=== PATIENT | female | born 1930 | race Caucasian/White ===

== ENCOUNTER 2019-06-14 13:41 | Emergency (ER) | payer MEDICARE ==
--- NOTE | 2019-06-14 15:11 | EDM.PDOC ---
ED HPI GENERAL MEDICAL PROBLEM - General Chief Complaint: Skin Complaint Stated Complaint: FELL AND HIT L SIDE OF THE FACE Time Seen by Provider: 06/14/19 15:00 Source of Information: Reports: Patient History Limitations: Reports: No Limitations - History of Present Illness INITIAL COMMENTS - FREE TEXT/NARRATIVE: Patient presents for evaluation of superficial injury to the left side of her face after she tripped and fell and scraped the left side of her face against a fence post while out with family. She had been walking carefully to avoid any icy areas and there was none where this event occurred. She chuckles somewhat that she ended up falling on an area of dried pavement. There was minor bleeding from the side of the face initially and after observation at the scene for some time, decided to come here for evaluation and treatment. She does not remember exactly when she had a tetanus immunization but knows she has had them in the past. Onset: Sudden Duration: Hour(s): Left Face/Facial Pain Score (Numeric/FACES): 5 - Related Data Allergies Allergy/AdvReac Type Severity Reaction Status Date / Time bee venom protein (honey bee) Allergy Difficulty Verified 06/14/19 14:12 Standing ciprofloxacin [From Cipro] Allergy Cannot Verified 06/14/19 14:12 Remember Penicillins Allergy Rash Verified 06/14/19 14:12 Sulfa (Sulfonamide Allergy Nausea Verified 06/14/19 14:12 Antibiotics) Home Meds: Home Meds Triamterene/Hydrochlorothiazid [Triamterene-HCTZ 75-50 MG] 0.5 tab PO DAILY [History] Warfarin [Coumadin] 2.75 mg PO ASDIRECTED 06/14/19 [History] Warfarin [Coumadin] 5 mg PO ASDIRECTED 06/14/19 [History] amLODIPine [Norvasc] 5 mg PO DAILY 06/14/19 [History] Past Medical History HEENT History: Reports: Impaired Vision Cardiovascular History: Reports: Hypertension [employer]IST History: Reports: Psychiatric History: Reports: Depression - Infectious Disease History Infectious Disease History: Reports: Chicken Pox, Measles, Mumps - Past Surgical History HEENT Surgical History: Reports: Cataract Surgery Respiratory Surgical History: Reports: Other (See Below) Other Respiratory Surgeries/Procedures: PE aprox 3 years ago. GI Surgical History: Reports: Colonoscopy Female Surgical History: Reports: Hysterectomy, Salpingo-Oophorectomy Social & Family History - Tobacco Use Smoking Status *Q: Never Smoker Second Hand Smoke Exposure: No - Caffeine Use Caffeine Use: Reports: Coffee, Tea - Recreational Drug Use Recreational Drug Use: No ED ROS GENERAL - Review of Systems Review Of Systems: Comprehensive ROS is negative, except as noted in HPI. ED EXAM, SKIN/RASH Exam: See Below Text/Narrative:: Composed female sitting on the bed in room 6. Exam Limited By: No Limitations General Appearance: Alert, No Apparent Distress Head: Other (There is an irregular 1.5 x 2 cm area of superficial abrasion/ avulsion in the lower left mandibular region) Course - Vital Signs Last Recorded V/S: Last Vital Signs Temp 35.9 C L 06/14/19 14:23 Pulse 86 06/14/19 14:23 Resp 16 06/14/19 14:23 BP 199/104 H 06/14/19 14:23 Pulse Ox 96 06/14/19 14:23 - Orders/Labs/Meds Orders: Active Orders 24 hr Category Date Time Status Vaccines to be Administered [RC] PER UNIT ROUTINE Care 06/14/19 15:12 Ordered Meds: Medications Discontinued Medications Generic Name Dose Route Start Last Admin Trade Name Freq PRN Reason Stop Dose Admin Diphtheria/Tetanus/Acell Pertussis 0.5 ml 06/14/19 15:12 06/14/19 15:34 Adacel IM 06/14/19 15:13 0.5 ml .ONCE ONE Administration - Re-Assessments/Exams Free Text/Narrative Re-Assessment/Exam: 06/14/19 15:13 She has a superficial skin abrasion/avulsion. The area will be cleansed with saline and then a transparent dressing will be applied. She should leave that on until she returns home to [place]. She should schedule a recheck with her doctor for some time this next week to remove this current dressing and reevaluate the injury. Because she is on warfarin this will help to control the oozing the past. She will be given a TDaP Booster as she does not recall when she last had any kind of tetanus immunization. Departure - Departure Time of Disposition: 15:15 Disposition: Home, Self-Care 01 Condition: Good Clinical Impression: Abrasion of face Qualifiers: Encounter type: initial encounter Qualified Code(s): S00.81XA - Abrasion of other part of head, initial encounter - Discharge Information *PRESCRIPTION DRUG MONITORING PROGRAM REVIEWED*: Not Applicable *COPY OF PRESCRIPTION DRUG MONITORING REPORT IN PATIENT SUNSHINE: Not Applicable Instructions: Abrasion, [id number] Referrals: PCP,None [Primary Care Provider] - Forms: ED Department Discharge Additional Instructions: Keep this transparent dressing on until recheck by your personal doctor if possible area did showering is acceptable but try to avoid scrubbing or rubbing near the edges of this transparent bandage. Watch for any signs of infection which would be increased redness beyond the edges of the wound and development of any pus like discharge. If concerned about the injury in anyway, return here prior to returning to your home. You were given a booster dose of tetanus, diphtheria and pertussis. Sepsis Event Note - Evaluation Sepsis Screening Result: No Definite Risk - Focused Exam Vital Signs: Vital Signs Temp Pulse Resp BP Pulse Ox 06/14/19 14:23 35.9 C L 86 16 199/104 H 96 Date Exam was Performed: 06/14/19 Time Exam was Performed: 17:37 - My Orders Last 24 Hours: My Active Orders 06/14/19 15:12 Vaccines to be Administered [RC] PER UNIT ROUTINE - Assessment/Plan Last 24 Hours: My Active Orders 06/14/19 15:12 Vaccines to be Administered [RC] PER UNIT ROUTINE
[2019-06-14] MEDS ORDERED: Diphtheria,Pertussis(Acell),Tetanus Vaccine 0.5 ML SDV IM ONE (15:12)
== END 2019-06-14 15:48 | disposition home or self-care (01) ==
LOC: JP.ED 13:41
DX: S01.80XA Unspecified open wound of other part of head, initial encounter (principal); Z23 Encounter for immunization; I10 Essential (primary) hypertension; F32.9 Major depressive disorder, single episode, unspecified; Z88.0 Allergy status to penicillin; Z88.2 Allergy status to sulfonamides; Z88.1 Allergy status to other antibiotic agents; Z91.030 Bee allergy status; Z79.899 Other long term (current) drug therapy; W01.0XXA Fall on same level from slipping, tripping and stumbling without subsequent striking against object, initial encounter
CPT/HCPCS: 90471; 90715; 99282; 99283